=== PATIENT | male | born 1980 | race Caucasian/White ===

== ENCOUNTER 2016-09-26 04:05 | Emergency (ER) | payer MEDICAID ==
[~2016-09-26] VITALS: Ht 162.6 cm; Wt 82.0 kg
[2016-09-26] MEDS ORDERED: SODIUM CHLORIDE 0.9% 1,000 ML IV ONE (05:30)
[2016-09-26] MEDS ORDERED: MORPHINE SULFATE 1MG/ML 1ML INJ SYR(NEO) IV ONE (05:30)
[2016-09-26] MEDS ORDERED: ONDANSETRON HCL 4MG/2ML VIAL IV ONE (05:30)
[2016-09-26] MEDS ORDERED: MORPHINE SULFATE 10 MG/ML CPJ IV ONE (05:30)
[2016-09-26 05:43] LABS: BASOPHILS % 0.4 % (0.0-2.0); EOSINOPHILS % 0.5 % (0.0-5.0); HEMATOCRIT. 41.9 % (42.0-52.0); HEMOGLOBIN. 14.7 g/dL (14.0-18.0); LYMPHOCYTES % 8.5 % (20.0-50.0); MEAN CORPUSCULAR HEMOGLOBIN 29.2 pg (28.0-32.0); MEAN PLATELET VOLUME 8.1 fl (7.4-10.4); MONOCYTES % 4.2 % (2.0-8.0); NEUTROPHILS % 86.4 % (40.0-76.0); PLATELET 238 x1000/uL (130-400); RED BLOOD CELL COUNT 5.05 mill/uL (4.7-6.1); RED CELL DISTRIBUTION WIDTH 13.2 % (11.6-14.6)
[2016-09-26] MEDS ORDERED: FAMOTIDINE 20MG/2ML VIAL IV ONE (05:45)
[2016-09-26 05:49] LABS: CHLORIDE 105 mEq/L (98-107)
[2016-09-26 05:57] LABS: CARBON DIOXIDE 28 mEq/L (21-32)
[2016-09-26 06:18] LABS: CLARITY URINE CLEAR (CLEAR); COLOR URINE YELLOW (YELLOW); GLUCOSE URINE NEGATIVE (NEGATIVE); KETONES URINE TRACE (NEGATIVE); LEUKOCYTE ESTERASE URINE TRACE (NEGATIVE); NITRITE URINE NEGATIVE (NEGATIVE); OCCULT BLOOD URINE NEGATIVE (NEGATIVE); PH URINE 5.5 (4.5-8.0); PROTEIN URINE NEGATIVE (NEGATIVE); SPECIFIC GRAVITY URINE 1.025 (1.005-1.030); UROBILINOGEN URINE 0.2 E.U./dL (0.2-1.0)
[2016-09-26 06:28] LABS: *AMPHETAMINES SCREEN URINE NEGATIVE (NEGATIVE); *BARBITURATES SCREEN URINE NEGATIVE (NEGATIVE); *BENZODIAZEPINES SCREEN URINE NEGATIVE (NEGATIVE); *COCAINE SCREEN URINE NEGATIVE (NEGATIVE); CANNABINOID URINE SCREEN NEGATIVE (NEGATIVE); METHADONE URINE SCREEN NEGATIVE (NEGATIVE); OPIATES URINE SCREEN NEGATIVE (NEGATIVE); PHENCYCLIDINE URINE SCREEN NEGATIVE (NEGATIVE)
[2016-09-26 08:45] VITALS: BP 115/85
[2016-09-26] MEDS ORDERED: SODIUM CHLORIDE 0.9% 10ML VIAL ONE (14:14)
[2016-09-26] MEDS ORDERED: IOHEXOL-300 100 ML BOTTLE ONE (14:14)
== END 2016-09-26 08:45 | disposition home or self-care (01) ==
LOC: ER 04:49
DX: R19.7 Diarrhea, unspecified (principal); R11.10 Vomiting, unspecified; R10.9 Unspecified abdominal pain
CPT/HCPCS: 36415; 74177; 80053; 80305; 81001; 83690; 85025; 96361; 96374; 96375; 99285; A4216; J2270; J2405; J3490; J7030; Q9967

== ENCOUNTER 2016-09-26 19:47 | Emergency (ER) | payer MEDICAID ==
[~2016-09-26] VITALS: Ht 162.6 cm; Wt 82.0 kg
[2016-09-26 19:55] VITALS: BP 131/77
== END 2016-09-26 21:38 | disposition left against medical advice (07) ==
LOC: ER 19:47
DX: Z53.21 Procedure and treatment not carried out due to patient leaving prior to being seen by health care provider (principal)